=== PATIENT | female | born 1950 | race Caucasian/White ===

== ENCOUNTER 2017-05-07 05:24 | Emergency (ER) | payer MEDICARE ==
[2017-05-07] MEDS ORDERED: SODIUM CHLORIDE 0.9% 500 ML IV ONE (05:36)
[2017-05-07 05:39] VITALS: RESP 14
[2017-05-07 05:39] LABS: Glucose,Whole Blood 203 mg/dL (75-99)
[2017-05-07 05:41] VITALS: TEMP 96.6
--- NOTE | 2017-05-07 05:44 | ED ---
General Adult HPI - General Chief complaint: Altered Mental Status Stated complaint: unresponsive Time Seen by Provider: 05/07/17 05:24 Source: patient, family, EMS, RN notes reviewed Mode of arrival: EMS Limitations: no limitations, altered mental status - History of Present Illness Initial comments: This is a 67-year-old female who woke up with a pain behind her eye according to the sister. Patient then went into the bathroom at about of diarrhea and vomited times one. Patient then started becoming weak and fell to the ground according to the sister shook for a couple of seconds and then became unresponsive at which point in time she called the ambulance. she continue to breathe. When EMS arrived the patient was bradycardic normotensive but unresponsive. Patient remained unresponsive in route. No other history was given at this time. Review of Systems ROS Statement: Those systems with pertinent positive or pertinent negative responses have been documented in the HPI. ROS Other: All systems not noted in ROS Statement are negative. Past Medical History Past Medical History: Unable to Obtain, Hypertension History of Any Multi-Drug Resistant Organisms: Unobtainable Past Surgical History: Unable to Obtain Past Psychological History: Unable to Obtain Smoking Status: Unknown if ever smoked Past Alcohol Use History: Unable to Obtain Past Drug Use History: Unable to Obtain General Exam - General Exam Comments Initial Comments: GENERAL: Patient is well-developed and well-nourished. Patient is unresponsive except withdrawing from painful stimuli ENT: Neck is soft and supple. No significant lymphadenopathy is noted. Oropharynx is clear. Moist mucous membranes. EYES: Patient's right pupil is larger than the left both pupils unresponsive to light PULMONARY: Unlabored respirations. Good breath sounds bilaterally. No audible rales rhonchi or wheezing was noted. CARDIOVASCULAR: Patient is bradycardic at 57 beats a minute ABDOMEN: Soft and nontender with normal bowel sounds. No palpable organomegaly was noted. There is no palpable pulsatile mass. SKIN: Skin is clear with no lesions or rashes and otherwise unremarkable. NEUROLOGIC: Patient is unresponsive and only withdraws with painful stimuli MUSCULOSKELETAL: Normal extremities with adequate strength and full range of motion. LYMPHATICS: No significant lymphadenopathy is noted PSYCHIATRIC: Unable to assess Limitations: no limitations, altered mental status Course Vital Signs 05/07/17 05/07/17 05/07/17 05:26 05:28 05:35 Temperature 96.6 F L Pulse Rate 56 L 54 L Respiratory 12 14 Rate Blood Pressure 139/64 139/64 O2 Sat by Pulse 99 94 L Oximetry 05/07/17 05/07/17 05/07/17 05:40 05:46 05:57 Temperature Pulse Rate 56 L 56 L 56 L Respiratory Rate Blood Pressure 101/55 109/55 121/64 O2 Sat by Pulse 97 100 100 Oximetry 05/07/17 05/07/17 05/07/17 06:07 06:16 06:43 Temperature Pulse Rate 56 L 52 L 54 L Respiratory Rate Blood Pressure 118/62 111/59 118/73 O2 Sat by Pulse 100 100 100 Oximetry Procedures - Intubation Time Out Performed: No Sedative: Versed Paralytic: Succinylcholine Laryngoscope: Chowdary Size: 3 ET Tube Size: 7.5 ET Tube Uncuffed: No Tube Secured Location: teeth Tube Placement Confirmation: visualized tube passing through cords Intubation Complications: none Medical Decision Making - Medical Decision Making EKG shows sinus bradycardia 56 bpm NH interval is on a 30 QRS is under QT intervals 512 QTC is 494. Patient's EKG shows slight ST segment elevation in V1 and V2 and slight ST segment depression in leads V3 V4 V5 and inferiorly. CT shows a large subarachnoid hemorrhage on the right parietal region. Patient has midline shift of 1.5 cm. I intubated the patient secondary to the fact that the patient had no gag reflex and only responded with from pain. Chest x-ray shows good placement of ET tube. I spoke with Dr. Cadena from [facility] they accept the patient I transfer the patient. I gave the patient Dilantin as well as mannitol the patient's had was at 30 and the patient was hyperventilated - Lab Data Result diagrams: 05/07/17 05:34 05/07/17 05:34 Lab Results 05/07/17 05/07/17 05/07/17 Range/Units 05:28 05:34 05:34 WBC 24.1 H (3.8-10.6) k/uL RBC 4.14 (3.80-5.40) m/uL Hgb 13.2 (11.4-16.0) gm/dL Hct 39.8 (34.0-46.0) % MCV 96.2 (80.0-100.0) fL MCH 31.9 (25.0-35.0) pg MCHC 33.2 (31.0-37.0) g/dL RDW 12.7 (11.5-15.5) % Plt Count 248 (150-450) k/uL Neutrophils % 74 % Lymphocytes % 20 % Monocytes % 4 % Eosinophils % 1 % Basophils % 0 % Neutrophils # 17.7 H (1.3-7.7) k/uL Lymphocytes # 4.8 (1.0-4.8) k/uL Monocytes # 0.9 (0-1.0) k/uL Eosinophils # 0.2 (0-0.7) k/uL Basophils # 0.1 (0-0.2) k/uL PT (9.0-12.0) sec INR (<1.1) APTT (22.0-30.0) sec Sample Site ABG pH (7.35-7.45) ABG pCO2 (35-45) mmHg ABG pO2 (83-108) mmHg ABG HCO3 (21-25) mmol/L ABG Total CO2 (19-24) mmol/L ABG O2 Saturation (94-97) % ABG Base Excess mmol/L FiO2 % Sodium (137-145) mmol/L Potassium (3.5-5.1) mmol/L Chloride (98-107) mmol/L Carbon Dioxide (22-30) mmol/L Anion Gap mmol/L BUN (7-17) mg/dL Creatinine (0.52-1.04) mg/dL Est GFR (MDRD) Af Amer (>60 ml/min/1.73 sqM) Est GFR (MDRD) Non-Af (>60 ml/min/1.73 sqM) Glucose (74-99) mg/dL POC Glucose (mg/dL) 203 H (75-99) mg/dL POC Glu Ichthyology Teacher ID Mari Jacob Calcium (8.4-10.2) mg/dL Total Bilirubin (0.2-1.3) mg/dL AST (14-36) U/L ALT (9-52) U/L Alkaline Phosphatase (38-126) U/L Total Creatine Kinase 98 (30-135) U/L CK-MB (CK-2) 1.2 (0.0-2.4) ng/mL CK-MB (CK-2) Rel Index 1.2 Troponin I <0.012 (0.000-0.034) ng/mL Total Protein (6.3-8.2) g/dL Albumin (3.5-5.0) g/dL Urine Color Urine Appearance (Clear) Urine pH (5.0-8.0) Ur Specific [place] (1.001-1.035) Urine Protein (Negative) Urine Glucose (UA) (Negative) Urine Ketones (Negative) Urine Blood (Negative) Urine Nitrite (Negative) Urine Bilirubin (Negative) Urine Urobilinogen (<2.0) mg/dL Ur Leukocyte Esterase (Negative) Salicylates mg/dL Urine Opiates Screen (NotDetected) Ur Oxycodone Screen (NotDetected) Urine Methadone Screen (NotDetected) Ur Propoxyphene Screen (NotDetected) Acetaminophen ug/mL Ur Barbiturates Screen (NotDetected) U Tricyclic Antidepress (NotDetected) Ur Phencyclidine Scrn (NotDetected) Ur Amphetamines Screen (NotDetected) U Methamphetamines Scrn (NotDetected) U Benzodiazepines Scrn (NotDetected) Urine Cocaine Screen (NotDetected) U Marijuana (THC) Screen (NotDetected) 05/07/17 05/07/17 05/07/17 Range/Units 05:34 05:34 06:06 WBC (3.8-10.6) k/uL RBC (3.80-5.40) m/uL Hgb (11.4-16.0) gm/dL Hct (34.0-46.0) % MCV (80.0-100.0) fL MCH (25.0-35.0) pg MCHC (31.0-37.0) g/dL RDW (11.5-15.5) % Plt Count (150-450) k/uL Neutrophils % % Lymphocytes % % Monocytes % % Eosinophils % % Basophils % % Neutrophils # (1.3-7.7) k/uL Lymphocytes # (1.0-4.8) k/uL Monocytes # (0-1.0) k/uL Eosinophils # (0-0.7) k/uL Basophils # (0-0.2) k/uL PT 10.0 (9.0-12.0) sec INR 1.0 (<1.1) APTT 19.9 L (22.0-30.0) sec Sample Site ABG pH (7.35-7.45) ABG pCO2 (35-45) mmHg ABG pO2 (83-108) mmHg ABG HCO3 (21-25) mmol/L ABG Total CO2 (19-24) mmol/L ABG O2 Saturation (94-97) % ABG Base Excess mmol/L FiO2 % Sodium 141 (137-145) mmol/L Potassium 4.0 (3.5-5.1) mmol/L Chloride 107 (98-107) mmol/L Carbon Dioxide 22 (22-30) mmol/L Anion Gap 12 mmol/L BUN 21 H (7-17) mg/dL Creatinine 0.60 (0.52-1.04) mg/dL Est GFR (MDRD) Af Amer >60 (>60 ml/min/1.73 sqM) Est GFR (MDRD) Non-Af >60 (>60 ml/min/1.73 sqM) Glucose 196 H (74-99) mg/dL POC Glucose (mg/dL) (75-99) mg/dL POC Glu Ichthyology Teacher ID Calcium 8.8 (8.4-10.2) mg/dL Total Bilirubin 0.4 (0.2-1.3) mg/dL AST 33 (14-36) U/L ALT 34 (9-52) U/L Alkaline Phosphatase 52 (38-126) U/L Total Creatine Kinase (30-135) U/L CK-MB (CK-2) (0.0-2.4) ng/mL CK-MB (CK-2) Rel Index Troponin I (0.000-0.034) ng/mL Total Protein 6.7 (6.3-8.2) g/dL Albumin 3.9 (3.5-5.0) g/dL Urine Color Yellow Urine Appearance Clear (Clear) Urine pH 5.0 (5.0-8.0) Ur Specific [place] 1.023 (1.001-1.035) Urine Protein Trace H (Negative) Urine Glucose (UA) 3+ H (Negative) Urine Ketones Trace H (Negative) Urine Blood Negative (Negative) Urine Nitrite Negative (Negative) Urine Bilirubin Negative (Negative) Urine Urobilinogen <2.0 (<2.0) mg/dL Ur Leukocyte Esterase Negative (Negative) Salicylates <1.0 mg/dL Urine Opiates Screen Not Detected (NotDetected) Ur Oxycodone Screen Not Detected (NotDetected) Urine Methadone Screen Not Detected (NotDetected) Ur Propoxyphene Screen Not Detected (NotDetected) Acetaminophen <10.0 ug/mL Ur Barbiturates Screen Not Detected (NotDetected) U Tricyclic Antidepress Not Detected (NotDetected) Ur Phencyclidine Scrn Not Detected (NotDetected) Ur Amphetamines Screen Not Detected (NotDetected) U Methamphetamines Scrn Not Detected (NotDetected) U Benzodiazepines Scrn Not Detected (NotDetected) Urine Cocaine Screen Not Detected (NotDetected) U Marijuana (THC) Screen Not Detected (NotDetected) 05/07/17 Range/Units 06:10 WBC (3.8-10.6) k/uL RBC (3.80-5.40) m/uL Hgb (11.4-16.0) gm/dL Hct (34.0-46.0) % MCV (80.0-100.0) fL MCH (25.0-35.0) pg MCHC (31.0-37.0) g/dL RDW (11.5-15.5) % Plt Count (150-450) k/uL Neutrophils % % Lymphocytes % % Monocytes % % Eosinophils % % Basophils % % Neutrophils # (1.3-7.7) k/uL Lymphocytes # (1.0-4.8) k/uL Monocytes # (0-1.0) k/uL Eosinophils # (0-0.7) k/uL Basophils # (0-0.2) k/uL PT (9.0-12.0) sec INR (<1.1) APTT (22.0-30.0) sec Sample Site rbrac ABG pH 7.47 H (7.35-7.45) ABG pCO2 33 L (35-45) mmHg ABG pO2 381 H (83-108) mmHg ABG HCO3 24 (21-25) mmol/L ABG Total CO2 25 H (19-24) mmol/L ABG O2 Saturation 100.0 H (94-97) % ABG Base Excess 0.3 mmol/L FiO2 100 % Sodium (137-145) mmol/L Potassium (3.5-5.1) mmol/L Chloride (98-107) mmol/L Carbon Dioxide (22-30) mmol/L Anion Gap mmol/L BUN (7-17) mg/dL Creatinine (0.52-1.04) mg/dL Est GFR (MDRD) Af Amer (>60 ml/min/1.73 sqM) Est GFR (MDRD) Non-Af (>60 ml/min/1.73 sqM) Glucose (74-99) mg/dL POC Glucose (mg/dL) (75-99) mg/dL POC Glu Ichthyology Teacher ID Calcium (8.4-10.2) mg/dL Total Bilirubin (0.2-1.3) mg/dL AST (14-36) U/L ALT (9-52) U/L Alkaline Phosphatase (38-126) U/L Total Creatine Kinase (30-135) U/L CK-MB (CK-2) (0.0-2.4) ng/mL CK-MB (CK-2) Rel Index Troponin I (0.000-0.034) ng/mL Total Protein (6.3-8.2) g/dL Albumin (3.5-5.0) g/dL Urine Color Urine Appearance (Clear) Urine pH (5.0-8.0) Ur Specific [place] (1.001-1.035) Urine Protein (Negative) Urine Glucose (UA) (Negative) Urine Ketones (Negative) Urine Blood (Negative) Urine Nitrite (Negative) Urine Bilirubin (Negative) Urine Urobilinogen (<2.0) mg/dL Ur Leukocyte Esterase (Negative) Salicylates mg/dL Urine Opiates Screen (NotDetected) Ur Oxycodone Screen (NotDetected) Urine Methadone Screen (NotDetected) Ur Propoxyphene Screen (NotDetected) Acetaminophen ug/mL Ur Barbiturates Screen (NotDetected) U Tricyclic Antidepress (NotDetected) Ur Phencyclidine Scrn (NotDetected) Ur Amphetamines Screen (NotDetected) U Methamphetamines Scrn (NotDetected) U Benzodiazepines Scrn (NotDetected) Urine Cocaine Screen (NotDetected) U Marijuana (THC) Screen (NotDetected) Critical Care Time Critical Care Time: Yes Total Critical Care Time: 35 Disposition Clinical Impression: Subarachnoid hemorrhage Disposition: OTHER INSTITUTION NOT DEFINED Referrals: German Espinoza DO [Primary Care Provider] - 1-2 days Time of Disposition: 06:15 - Out of Hospital Transfer - Req. Specs Out of Hospital Transfer - Requested Specifics: Other Emergency Center ([facility])
[2017-05-07 05:55] LABS: Basophils # (A) 0.1 k/uL (0-0.2); Basophils % (A) 0 %; CH 31.4; CHCM 32.8; Eosinophils # (A) 0.2 k/uL (0-0.7); Eosinophils % (A) 1 %; HCT 39.8 % (34.0-46.0); HDW 2.08; HGB 13.2 gm/dL (11.4-16.0); Luc % (Auto) 2; Lymphocytes # (A) 4.8 k/uL (1.0-4.8); Lymphocytes % (A) 20 %; MCH 31.9 pg (25.0-35.0); MCHC 33.2 g/dL (31.0-37.0); MCV 96.2 fL (80.0-100.0); Monocytes # (A) 0.9 k/uL (0-1.0); Monocytes % (A) 4 %; Neutrophils # (A) 17.7 k/uL (1.3-7.7); Neutrophils % (A) 74 %; RBC 4.14 m/uL (3.80-5.40); RDW 12.7 % (11.5-15.5); WBC 24.1 k/uL (3.8-10.6); WBC (Perox) 22.81
[2017-05-07] MEDS ORDERED: PHENYTOIN SODIUM INJ 1,000 MG in SODIUM CHLORIDE 0.9% 100 ML IVPB STA (05:57)
[2017-05-07] MEDS ORDERED: MANNITOL 25% 12.5 GM/50 ML VIAL IV STA (05:57)
[2017-05-07 05:58] LABS: ALT 34 U/L (9-52); AST 33 U/L (14-36); Acetaminophen <10.0 ug/mL; Alkaline Phosphatase 52 U/L (38-126); Anion Gap 12 mmol/L; Blood Urea Nitrogen 21 mg/dL (7-17); Calcium 8.8 mg/dL (8.4-10.2); Carbon Dioxide 22 mmol/L (22-30); Chloride 107 mmol/L (98-107); Glucose 196 mg/dL (74-99); Non-African American GFR(MDRD) >60 (>60 ml/min/1.73 sqM); Salicylate <1.0 mg/dL; Sodium 141 mmol/L (137-145); Total Bilirubin 0.4 mg/dL (0.2-1.3); Total Protein 6.7 g/dL (6.3-8.2)
[2017-05-07] MEDS ORDERED: SUCCINYLCHOLINE CHLORIDE VIAL 200 MG/10 ML VIAL IV ONE (06:12)
[2017-05-07 06:13] LABS: Appearance,Urine Clear (Clear); Bilirubin,Urine Negative (Negative); Glucose,Urine (UA) 3+ (Negative); Ketones,Urine Trace (Negative); Leukocyte Esterase,Urine Negative (Negative); Nitrite,Urine Negative (Negative); Protein,Urine Trace (Negative); Specific Gravity,Urine 1.023 (1.001-1.035); UA Billing (MACRO vs. MICRO) CHEM; Urobilinogen,Urine <2.0 mg/dL (<2.0)
[2017-05-07] MEDS ORDERED: MIDAZOLAM (PF) 1 MG/ML 5 ML VIAL IV STA (06:13)
[2017-05-07 06:14] LABS: Partial Thromboplastin Time 19.9 sec (22.0-30.0)
[2017-05-07] MEDS ORDERED: SALINE 1 500ML.BAG with MANNITOL 20% PMX 350 ML IV ONE (06:15)
[2017-05-07 06:17] LABS: Creatine Kinase 98 U/L (30-135)
[2017-05-07 06:21] LABS: ABG Base Excess 0.3 mmol/L; ABG HCO3 24 mmol/L (21-25); ABG PCO2 33 mmHg (35-45); ABG PH 7.47 (7.35-7.45); ABG PO2 381 mmHg (83-108); ABG TCO2 25 mmol/L (19-24)
[2017-05-07] MEDS ORDERED: MANNITOL 20% IV ONE (06:25)
--- NOTE | 2017-05-07 06:25 | CT ---
EXAM: CT Head Without Intravenous Contrast CLINICAL HISTORY: Reason: altered mental status TECHNIQUE: Axial computed tomography images of the head/brain without intravenous contrast. CTDI is 57.40 mGy and DLP is 1113.30 mGy-cm. This CT exam was performed using one or more of the following dose reduction techniques: automated exposure control, adjustment of the mA and/or kV according to patient size, and/or use of iterative reconstruction technique. COMPARISON: Prior MRI 03/18/11. FINDINGS: Brain: 8 x 5 x 4 cm parenchymal hemorrhage in the right parietotemporal lobes. Mild adjacent subarachnoid hemorrhage. Small mixed density subdural hematoma along the right convexity up to 6 mm thickness. Effacement of the suprasellar and basilar cisterns. Compression of the midbrain and mild leftward displacement, along with midline structures. No edema. Ventricles: Regional associated mass effect with compression of the right lateral ventricle and 13 mm leftward midline shift. Left temporal horn is mildly enlarged which may be trapped. 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 No acute fracture. Soft tissues: Unremarkable. Sinuses: Minimal paranasal sinus mucosal thickening. No fluid levels. Mastoid air cells: Unremarkable as visualized. No mastoid effusion. Orbits: Bilateral cataract surgery. IMPRESSION: 1. 8 x 5 x 4 cm right parietotemporal parenchymal hemorrhage. Associated mass effect, compression of the right lateral ventricle and 13 mm leftward midline shift. Effacement basilar cisterns worrisome for transtentorial herniation. 2. Mild adjacent subarachnoid hemorrhage. 3. 6 mm mixed density epidural hematoma along the right convexity. 4. Mildly enlarged temporal horn of the left lateral ventricle may reflect trapped ventricle. [employer] 05/07/17 06:10 Call Doctor Regarding Intracranial Hemorrhage, called Dr. Orlando on 05/07 06:09 (-04:00)
[2017-05-07] MEDS ORDERED: PANTOPRAZOLE 40 MG/10 ML VIAL IVP STA (06:27)
--- NOTE | 2017-05-07 06:28 | XR ---
EXAM: XR Chest, 1 View CLINICAL HISTORY: Reason: altered mental status TECHNIQUE: Frontal view of the chest. COMPARISON: No relevant prior studies available. FINDINGS: Lungs: Unremarkable. No consolidation. Pleural space: Asymmetric mild left apical pleural thickening. No obvious pleural effusion at the costophrenic angles. Heart: Unremarkable. No cardiomegaly. Mediastinum: Unremarkable. Bones/joints: Unremarkable. Tubes, lines and devices: Enteric tube tip in the distal esophagus. Endotracheal tube tip 5.5 cm above the chao. IMPRESSION: 1. Endotracheal tube 5.5 cm above chao 2. Enteric tube tip in the distal esophagus. Recommend advancing approximately 15 cm. 3. Asymmetric mild left apical pleural thickening. [employer] 05/07/17 06:42 Verify Receipt Verified receipt with Insurance Collector Angélica in the ER for Dr. Orlando on 05/07 06:41 (-04:00)
[2017-05-07 06:30] LABS: Creatine Kinase MB 1.2 ng/mL (0.0-2.4); Troponin I <0.012 ng/mL (0.000-0.034)
[2017-05-07 06:44] VITALS: BP 118/73; PULSE 54
== END 2017-05-07 06:46 | disposition short-term general hospital (02) ==
LOC: EC 05:24
DX: S06.6X9A Traumatic subarachnoid hemorrhage with loss of consciousness of unspecified duration, initial encounter (principal); H92.09 Otalgia, unspecified ear; R19.7 Diarrhea, unspecified; R00.1 Bradycardia, unspecified; W19.XXXA Unspecified fall, initial encounter
CPT/HCPCS: 31500 ×2; 96368 ×2; 96365 ×2; 99291 ×2; 36415; 36600; 94002; 93005; 80053; 82550; 82553; 82805; 84484; 85025; 85610; 85730; 81003; 80306; 83520 ×2; 71010; 70450; J0330; J1165; J2250